=== PATIENT | male | born 1950 | race Caucasian/White ===

== ENCOUNTER → 2017-05-28 | Outpatient (CLI) | payer BC ==
[~2017-05-28] MED LIST: CATHETER FLUSH 10 ML SYR IV PRN; REGADENOSON 0.4 MG/5 ML SYR (LEXISCAN) IV ONE
[2017-05-28 08:52] VITALS: BP 132/85
[2017-05-28 09:01] VITALS: BP 138/78
--- NOTE | 2017-05-29 13:39 | STRESS TEST ---
DATE OF SERVICE: 05/28/2017 RESTING AND POST-REGADENOSON TECHNETIUM-[address] IMAGING: ORDERING PHYSICIAN: Dr. Cardoza. PRIMARY PHYSICIAN: Dr. Orosco. 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 Baseline images were carried out after injection of 10.86 mCi of technetium-99m Tetrofosmin. This was followed by 0.4 mg regadenoson and 30 mCi of technetium-99m Tetrofosmin for stress imaging. The electrocardiogram showed sinus rhythm at baseline and it did not change significantly with the regadenoson infusion. He had mild shortness of breath and chest pressure following regadenoson infusion, which resolved in a few minutes. Review of images at rest and following stress indicates a minimal apical perfusion defect that is transient. Gated images show normal global left ventricular systolic function and normal regional wall motion. Left ventricular ejection fraction is calculated to be 58%. Left ventricular end diastolic volume 99 mL. TID is absent (1.01). CONCLUSIONS: 1. This study indicates a minimal apical perfusion defect, consistent with known distal occlusion of the left anterior descending artery with collateralization. 2. Normal regional wall. 3. Normal global left ventricular systolic function with an ejection fraction of 58%. Job ID: [id number] DocumentID: [id number] Dictated Date: 05/29/2017 12:39:06 Admitting Representative Date: 05/29/2017 13:15:57 Dictated By: MARISEL CARDOZA MD, MA, FACP, FACC,
== END ==
LOC: CARD 07:12
PROVIDERS: ATTEND Internal Medicine Cardiovascular Disease
DX: I25.10 Atherosclerotic heart disease of native coronary artery without angina pectoris (principal); I48.0 Paroxysmal atrial fibrillation
CPT/HCPCS: 78452; 93017

== ENCOUNTER → 2017-06-01 | Outpatient (CLI) | payer BC | LOC: CARD 09:29 | PROVIDERS: ATTEND Internal Medicine Cardiovascular Disease | DX: I25.10 Atherosclerotic heart disease of native coronary artery without angina pectoris (principal); I48.0 Paroxysmal atrial fibrillation | CPT/HCPCS: 93306 ==

== ENCOUNTER → 2018-11-03 | Outpatient (CLI) | payer MEDICARE ==
[~2018-11-03] MED LIST changes: -CATHETER FLUSH 10 ML SYR IV PRN; -REGADENOSON 0.4 MG/5 ML SYR (LEXISCAN) IV ONE; +RT-ALBUTEROL SULF 2.5 MG/3 ML PRE-MIX VIAL INH ONE
== END ==
LOC: RT 10:33
PROVIDERS: ATTEND Nurse Practitioner Family
DX: J45.909 Unspecified asthma, uncomplicated (principal); G47.33 Obstructive sleep apnea (adult) (pediatric)
CPT/HCPCS: 94060; 94726; 94729